=== PATIENT | female | born 1975 | race Caucasian/White ===

== ENCOUNTER 2021-12-15 14:36 | Emergency (ER) | payer OTHER ==
[2021-12-15 17:19] LABS: BASOPHIL 0.4 % (0-2); EOSINOPHIL 0.9 % (0-5); HCT 44.2 % (37.0-47.0); LYMPHOCYTE 16.1 % (15-48); MCH 30.1 pg (25.0-31.0); MCHC 33.9 g/dL (32.0-36.0); MCV 88.6 fL (78.0-100.0); MONOCYTE 9.7 % (0-12); MPV 9.8 fL (6.0-9.5); NEUTROPHIL 72.5 % (41-80); NRBC 0; PLT 283 K/uL (150-400); RBC 4.99 M/uL (4.20-5.40); RDW 13.2 % (11.5-14.0); WBC 11.4 K/uL (4.0-10.5)
[2021-12-15 17:51] LABS: ALKALINE PHOSHATASE 100 U/L (46-116); ALT 27 U/L (14-59); AST 21 U/L (15-37); BUN 11 mg/dL (7-18); BUN/CREAT RATIO (CALC) 15.5 RATIO; CHLORIDE 102 mmol/L (98-107); CO2 (BICARBONATE) 29 mmol/L (21-32); CREATININE 0.71 mg/dL (0.51-0.95); GLUCOSE 91 mg/dL (74-106); LIPASE 103 U/L (73-393); POTASSIUM 4.1 mmol/L (3.5-5.1)
[2021-12-16 00:47] LABS: BILIRUBIN NEGATIVE (NEGATIVE); BLOOD TRACE-INTACT Ery/uL (NEGATIVE); CLARITY CLEAR (CLEAR); COLOR YELLOW (YELLOW); GLUCOSE (U) NORMAL (NORMAL); LEUKOCYTES NEGATIVE Leu/uL (NEGATIVE); NITRITE NEGATIVE (NEGATIVE); PROTEIN NEGATIVE (NEGATIVE); UROBILINOGEN 0.2 mg/dL (0.2-1.0); pH 6.5 (5.0-9.0)
[2021-12-16 00:55] LABS: BARBITURATES NEGATIVE (NEGATIVE); ECSTASY (MDMA) POSITIVE (NEGATIVE); MARIJUANA (THC) NEGATIVE (NEGATIVE); METHADONE NEGATIVE (NEGATIVE); OPIATES NEGATIVE (NEGATIVE)
[2021-12-16 00:56] LABS: AMPHETAMINES POSITIVE (NEGATIVE); OXYCODONE NEGATIVE (NEGATIVE)
[2021-12-16 01:09] LABS: BACTERIA TRACE; SQUAMOUS EPITHELIAL CELLS RARE
== END 2021-12-16 08:12 | disposition home or self-care (01) ==
LOC: FER 14:36
PROVIDERS: Emergency Medicine
DX: R07.89 Other chest pain (principal); M25.511 Pain in right shoulder; M25.551 Pain in right hip; F15.10 Other stimulant abuse, uncomplicated; F13.10 Sedative, hypnotic or anxiolytic abuse, uncomplicated; F17.200 Nicotine dependence, unspecified, uncomplicated; Z23 Encounter for immunization; V49.40XA Driver injured in collision with unspecified motor vehicles in traffic accident, initial encounter; Y92.410 Unspecified street and highway as the place of occurrence of the external cause
CPT/HCPCS: 36415; 70450; 71260; 72125; 72128; 72131; 73030; 73502; 80053; 80305; 81001; 83690; 85025; 90471; 90715; G0480; J1630; J7030